=== PATIENT | female | born 1945 | race Caucasian/White ===

== ENCOUNTER → 2016-11-06 | Outpatient (CLI) | payer MEDICARE ==
--- NOTE | 2016-11-07 11:32 | BD ---
EXAMINATION TYPE: MG DEXA axial skeleton. DATE OF EXAM: 11/06/2016 COMPARISON: NONE CLINICAL HISTORY: Height: 59 IN Weight: 153 LBS FRAX RISK QUESTIONS: Alcohol (3 or more units per day): NO Family History (Parent hip fracture): NO Glucocorticoids (More than 3mos): NO (Ex: prednisone, prednisolone, methylprednisolone, dexamethasone, and hydrocortisone). History of Fracture in Adulthood: NO Secondary Osteoporosis: 1. Type 1 Diabetes: NO 2. Hyperthyroidism: NO 3. Menopause before 45: NO 4. Malnutrition: NO 5. Chronic liver disease: NO Rheumatoid Arthritis: NO Current Tobacco Use: NO RISK FACTORS HISTORY OF: Surgery to Hip(right): YES RT HIP REPLACEMENT When: 2014 Active: YES Diet low in dairy products/other sources of calcium: YES Postmenopausal woman: AGE 51 MEDICATIONS: Osteoporosis Medications: YES Which medication: Evista Additional Medications: EVISTA, CALCIUM, VIT D EXAM MEASUREMENTS: Bone mineral densitometry was performed using the Mov[employer] System. Bone mineral density as measured about the Lumbar spine is: ----- L1-L4(G/cm2): 1.152 T Score Values are as follows: ----- L2: -0.7 ----- L3: 0.9 ----- L4: 0.0 ----- L1-L4: -0.2 Bone mineral density has: Increased 2.5% since study of: 09/30/2014 PT HAD RT HIP REPLACEMENT 2014 Bone mineral density about the L hip (g/cm2): 0.711 T Score values are as follows: -----L Neck: -2.4 -----L Total: -0.9 Bone mineral density has: Decreased -3.4% since study of: 09/30/2014 IMPRESSION: Osteopenia (T Score between -2.5 and -1 as noted by T score values There is slightly increased risk of fracture and the patient may be considered for treatment. Re-Screen 2-5 years. Bone density is improved 2.5% within the lumbar spine from the comparison of 09/30/2014. Bone density within the left hip is diminished 3.4% from 2014. NOTE: T-SCORE=SD OF THE YOUNG ADULT MEAN.
--- NOTE | 2016-11-07 13:56 | MM ---
Reason for exam: screening (asymptomatic). Last mammogram was performed 1 year ago. History: Patient is postmenopausal and history of other cancer. Benign cyst aspiration, 1979. Physical Findings: A clinical breast exam by your physician is recommended on an annual basis and results should be correlated with mammographic findings. MG 3D Screening Mammo W/Cad Bilateral CC and MLO view(s) were taken. Prior study comparison: November 01, 2015, bilateral MG 3d screening mammo w/cad. There are scattered fibroglandular densities. No significant changes when compared with prior studies. ASSESSMENT: Benign, BI-RAD 2 RECOMMENDATION: Routine screening mammogram of both breasts in 1 year.
== END | disposition home or self-care (01) ==
LOC: RADMAMWWP 11:41
PROVIDERS: ATTEND Internal Medicine
DX: Z12.31 Encounter for screening mammogram for malignant neoplasm of breast (principal); M85.80 Other specified disorders of bone density and structure, unspecified site
CPT/HCPCS: 77080; 77063; G0202

== ENCOUNTER → 2017-12-16 | Outpatient (CLI) | payer MEDICARE ==
--- NOTE | 2017-12-18 11:59 | MM ---
Reason for exam: screening (asymptomatic). Last mammogram was performed 1 year and 1 month ago. History: Patient is postmenopausal and history of other cancer. Benign cyst aspiration, 1979. Physical Findings: A clinical breast exam by your physician is recommended on an annual basis and results should be correlated with mammographic findings. MG 3D Screening Mammo W/Cad Bilateral CC and MLO view(s) were taken. Prior study comparison: November 06, 2016, bilateral MG 3d screening mammo w/cad. November 01, 2015, bilateral MG 3d screening mammo w/cad. There are scattered fibroglandular densities. No significant changes when compared with prior studies. ASSESSMENT: Negative, BI-RAD 1 RECOMMENDATION: Routine screening mammogram of both breasts in 1 year.
== END | disposition home or self-care (01) ==
LOC: RADMAMWWP 08:48
PROVIDERS: ATTEND Internal Medicine
DX: Z12.31 Encounter for screening mammogram for malignant neoplasm of breast (principal)
CPT/HCPCS: 77063; 77067

== ENCOUNTER 2018-10-08 10:17 | Day surgery (SDC) | payer MEDICARE ==
[~2018-10-08 10:17] MED LIST: DEXAMETHASONE SOD PHOSPHATE 10 MG/ML 1 ML VIAL IV ONE; LACTATED RINGERS 1,000 ML IV SCH; LIDOCAINE 1% 20 ML VIAL (10MG/ML) FOR IV START INTRADERMA PRN; ceFAZolin IN SWFI 2 GM/20 ML SYRINGE IVP ONE
[2018-10-08] MEDS ORDERED: ONDANSETRON 4 MG/2 ML VIAL IVP ONE (11:07)
[2018-10-08] MEDS: MIDAZOLAM 2 MG/2 ML VIAL IV PRN ×2 (13:13→13:33)
[2018-10-08] MEDS: fentaNYL (PF) 50 MCG/ML 2 ML AMP IV PRN ×2 (13:14→13:31)
[2018-10-08] MEDS ORDERED: LIDOCAINE 1% INJ 10MG/ML (20 ML MDV) ONE (13:34)
[2018-10-08] MEDS ORDERED: PROPOFOL 10 MG/ML 20 ML VIAL IV ONE (13:34)
[2018-10-08] MEDS ORDERED: SUCCINYLCHOLINE CHLORIDE 100 MG/5 ML SYR IV ONE (13:34)
[2018-10-08] MEDS ORDERED: MIDAZOLAM 2 MG/2 ML VIAL ONE (13:34)
[2018-10-08] MEDS ORDERED: fentaNYL (PF) 50 MCG/ML 2 ML AMP ONE (13:34)
[2018-10-08] MEDS ORDERED: ROPIVACAINE 5 MG/ML 30 ML VIAL ONE (13:34)
--- NOTE | 2018-10-08 16:32 | P.OP ---
Date of Procedure: 10/08/18 Preoperative Diagnosis: 1. Hypermobile left hallux valgus 2. 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 Correction of left hallux valgus through the first tarsometatarsal joint corrective arthrodesis 2. Correction of left hallux valgus with a left modified Quinones procedure 3. Correction of deformity left second toe PIP arthrodesis 4. Application of short leg splint by physician Anesthesia: LELO, regional Surgeon: Anjel Shaffer Information Technology Program Manager #1: Beatris Shi Estimated Blood Loss (ml): 50 IV fluids (ml): 1,200 Pathology: none sent Condition: stable Disposition: PACU Indications for Procedure: The patient is a very pleasant 72-year-old table flexed any history of problems in her left foot. She previously had left second toe surgery by cellular equipment repairer developed angular deformity. She also has developed progressively worsening hallux valgus deformity. She has failed many years of nonsurgical treatment including activity modification, shoe modification, orthotics, anti- inflammatories, and observation. 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 Her x-rays showed a hallux valgus deformity with increased 1-2 intermetatarsal angle. There was minimal degenerative changes at the first MTP joint and she had no pain with passive range of motion of the MTP joint. I lengthy discussion with her on treatment options. The patient stated that since she had failed many years of nonsurgical treatment she wanted to go forward with surgery both of her hallux valgus and second toe. My recommendation was to correct the hallux valgus with a modified Lapidus procedure and correct the angular deformity of the second toe with an implant arthroplasty of the PIP joint. We discussed potential risks and complications of surgery including but not limited to risk of anesthesia, superficial infection, deep infection, delayed wound healing, superficial wound necrosis, deep wound necrosis, damage to local blood vessels or nerves, recurrent hallux valgus deformity, under correction of hallux valgus deformity, iatrogenic hallux varus deformity, nonunion of the fusion site, malunion the fusion site, failure of hardware, continued or worsened pain, dissatisfaction with surgery, recurrent deformity the second toe, need for an amputation, DVT, PE, other medical complications, and possibly loss of life or limb. The patient voiced understanding of all these potential complications and provided her verbal and written consent to go forward with surgery. Operative Findings: The patient had very poor bone quality and thin, delicate skin. Description of Procedure: The patient was identified prepped holding and the correct left leg was marked with my initials. I reviewed the consent form with the patient and her . All their questions were answered. A popliteal and saphenous nerve block was placed. The patient was then brought back to the operating room. She was positioned on the OR table where general anesthetic and preoperative antibiotics were given. A tourniquet was applied the proximal aspect of the left leg. All bony prominences were well-padded. The left leg was then prepped and draped in the standard sterile fashion. Prior to starting surgery timeout was performed identifying the correct patient, operative extremity, and procedure. The patient's leg was then elevated, exsanguinated with an Esmarch bandage, and the tourniquet was inflated to 250 mmHg. I began by outlining a longitudinal incision just medial to the EHL tendon centered over the first tarsometatarsal joint. Dissection was carried down carefully to the subcu tissues tissue taking care to not undermine the skin incision. Full-thickness flaps were developed under the EHL tendon. The EHL tendon sheath was incised and the tendon was retracted laterally. The capsule over the first tarsometatarsal joint was sharply elevated. On inspection of the base the first metatarsal there was bone loss medially. A saw blade was then used to plane the base of the first metatarsal for rotation. Attention was then turned to the first webspace. A 1 cm incision was made. Dissection was carried down carefully to the soft tissue with tenotomy scissors. The lateral capsule of the MTP joint were sharply released and elevated both proximally and distally off of the metatarsal and phalanx. A varus force was applied to the MTP joint and a palpable release was felt. A pin was then placed 1 cm distal to the tarsometatarsal joint and the first metatarsal base. Fluoroscopy was used to verify that the intermetatarsal angle to be reduced with rotation of the joystick pin and thumb pressure over the medial aspect of the first metatarsal head. I was easily able to reduce the intermetatarsal angle and cover the sesamoids. A cut guide was then placed over the first tarsometatarsal joint and a stab incision was made just distal to the cut guide over the lateral aspect second metatarsal. A stab incision was made at the lateral base of the first metatarsal and the fulcrum was placed. As I rotated the metatarsal an assistant to the vice president placed one kassie of the intermetatarsal reduction clamp over the second metatarsal and the other kassie over the medial shaft of the first metatarsal. The reduction clamp was tightened until 2 finger tightness was reached. Clinically the toe appeared straight. Fluoroscopy was used to assess the position of the metatarsal in both an AP and lateral plane. On the AP view the intermetatarsal angle was reduced and the sesamoids were covered. On the lateral view there is no elevation of the metatarsal. A K wire was driven to hold the reduction. The joint seeker was then placed in the first tarsometatarsal joint and a standard cut guide was placed over the keel of the joint seeker. The position of the cut guide was verified and pinned in place. The joint seeker was removed and I verified the bone was being evenly removed off of the base of the first metatarsal and medial cuneiform. A small reciprocating saw was used to remove the bone. The oblique pin through the cut guide was removed followed by the pin through the intermetatarsal reduction clamp. The compressor distractor device was placed over the pins and the medial cuneiform and first metatarsal. Gentle distraction was applied. The cut surfaces of bone were carefully removed and the joint was thoroughly inspected. There appeared to be a flat cut over the cuneiform but there is a small amount of articular cartilage remaining in the central portion of the first metatarsal base. A curet and osteotome was used to remove the remaining articular cartilage. The joint was thoroughly irrigated with sterile saline to remove all debris. A 2.0 mm drill bit was then used to fenestrate the cut surfaces of bone on the opposing surfaces of the medial cuneiform and metatarsal base. Fluoroscopy was used to verify that flat cuts of been achieved and there is no impediments to reduction. The compressor device was then gently tightened with the keel of the fulcrum at the lateral base of the first metatarsal. The joint was well compressed. Fluoroscopy was used to verify excellent apposition of the bony surfaces. The first metatarsal also appeared to cover the sesamoids and was rolled of the second metatarsal. An oblique K wire was then placed across the joint to hold the reduction. One plate from the set was placed over the medial aspect of the joint. The K wires from the compressor device were removed and the second plate was placed over the dorsolateral aspect of the joint. The oblique K wire across the joint was removed. Clinically the joint appeared to be compressed with no gapping. Fluoroscopy was then used which showed reduction of the intermetatarsal angle and coverage of the sesamoids on an AP view. There was no elevation of the first metatarsal and a lateral view. There is a small dorsomedial prominence over the MTP joint so a small incision was made over the medial eminence. Dissection was carried down through the subcu changes tissue. The capsule was incised longitudinally in line with the skin incision. A Ronguer was used to contour the medial aspect of the metatarsal head. A small amount of the capsule was removed and the capsule was then imbricated and closed with 0 Vicryl. Attention was then turned to the second toe. An incision was made through the scar over the dorsum of the toe. Dissection was carried down through the subcutaneous tissue. There was abundant scar tissue interposed at the joint. This was carefully removed sharply with the scalpel. The K wire was then driven through the middle phalanx out the tip of the toe. The toe was held reduced and the K wire was driven across the proximal phalanx. The K wire was then withdrawn from the PIP joint and the reamer was used to remove bone from the middle phalanx. A cannulated reamer was then used to create a path in the middle and proximal phalanx for the implant. The implant was then gently tapped into place and the middle phalanx. The quality of the bone at the proximal phalanx was very poor. I elected to not remove bone asymmetrically for fear of further damaging the proximal phalanx and not having bone for the implant to seat in. Clinically the PIP joint was reduced and the implant was gently tapped into place. Clinically the toe appeared straight but on x-ray there was slight valgus. Since clinically the toe appeared straight I elected to leave the implant and not take asymmetric bone from the phalanx. Final fluoroscopic images were taken in both wounds were thoroughly irrigated. The wounds were closed in layers with 2-0 Vicryl for the capsular layer, 3-0 Monocryl for the deep subcu, and 3-0 nylon for the skin. The tourniquet was let down. All instrument, sponge, and sharp counts were correct. A sterile dressing consisting of Betadine soaked Adaptic, 4 x 4, and web roll was applied. The toes appeared pink and well perfused. After the drapes were taken down and a well-padded bulky Carrero splint was placed with the ankle in neutral. The patient was then awoken from her anesthetic, transferred to a gurney, and brought to recovery entire procedure well. Beatris Shi PA-C was required as a skilled assistant to the vice president for patient positioning, surgical exposure, retraction, preparation of joint surfaces, and placement of hardware and splint. Plan: The patient can discharge home as an outpatient. She is to remain strictly nonweightbearing on her operative extremity anterior incisions heal. She'll be given aspirin for DVT prophylaxis. Due to her poor bone quality I'll check a vitamin D level.
[2018-10-08 16:43] VITALS: TEMP 97.3
--- NOTE | 2018-10-08 16:54 | FL ---
EXAMINATION TYPE: FL guidance operating room DATE OF EXAM: 10/08/2018 HISTORY: Flouroscopy time 36 seconds of fluoroscopy provided. IMPRESSION: 1. Fluoroscopy time.
--- NOTE | 2018-10-08 16:54 | XR ---
EXAMINATION TYPE: XR foot limited LT DATE OF EXAM: 10/08/2018 COMPARISON: NONE HISTORY: Postop TECHNIQUE: 2 intraoperative views are submitted. FINDINGS: Postsurgical changes appear in near-anatomic alignment. IMPRESSION: Postsurgical changes
[2018-10-08 17:16] VITALS: RESP 16
[2018-10-08 17:38] VITALS: BP 126/70; PULSE 86
== END 2018-10-08 18:16 | disposition home or self-care (01) ==
LOC: OR 10:17
PROVIDERS: ATTEND Orthopaedic Surgery
DX: M20.12 Hallux valgus (acquired), left foot (principal); M20.62 Acquired deformities of toe(s), unspecified, left foot; M21.42 Flat foot [pes planus] (acquired), left foot; M19.072 Primary osteoarthritis, left ankle and foot; M20.11 Hallux valgus (acquired), right foot; I10 Essential (primary) hypertension; I48.0 Paroxysmal atrial fibrillation; I45.2 Bifascicular block; Z98.890 Other specified postprocedural states; Z79.82 Long term (current) use of aspirin; Z79.899 Other long term (current) drug therapy; Z79.1 Long term (current) use of non-steroidal anti-inflammatories (NSAID); Z79.810 Long term (current) use of selective estrogen receptor modulators (SERMs); Z96.641 Presence of right artificial hip joint; Z91.048 Other nonmedicinal substance allergy status; Z87.891 Personal history of nicotine dependence
CPT/HCPCS: 28297; 28899; 93005; 73620; C1713; J2250; J1100; J2405; J2001; J3010; J2795; J0330; J2704; J0690; 64445; 64493

== ENCOUNTER → 2019-01-16 | Outpatient (CLI) | payer MEDICARE ==
--- NOTE | 2019-01-20 10:14 | MM ---
Reason for exam: screening (asymptomatic). Last mammogram was performed 1 year and 1 month ago. History: Patient is postmenopausal and history of other cancer. Benign cyst aspiration, 1979. Physical Findings: A clinical breast exam by your physician is recommended on an annual basis and results should be correlated with mammographic findings. MG 3D Screening Mammo W/Cad Bilateral CC and MLO view(s) were taken. Prior study comparison: December 16, 2017, bilateral MG 3d screening mammo w/cad. November 06, 2016, bilateral MG 3d screening mammo w/cad. The breast tissue is heterogeneously dense. This may lower the sensitivity of mammography. No suspicious abnormality. No significant changes when compared with prior studies. ASSESSMENT: Negative, BI-RAD 1 RECOMMENDATION: Routine screening mammogram of both breasts in 1 year.
== END | disposition home or self-care (01) ==
LOC: RADMAMWWP 09:07
PROVIDERS: ATTEND Internal Medicine
DX: Z12.31 Encounter for screening mammogram for malignant neoplasm of breast (principal)
CPT/HCPCS: 77063; 77067

== ENCOUNTER → 2019-01-20 | Outpatient (CLI) | payer MEDICARE ==
--- NOTE | 2019-01-20 10:40 | BD ---
EXAMINATION TYPE: Axial Bone Density DATE OF EXAM: 01/20/2019 COMPARISON: 11.06.2016 CLINICAL HISTORY: M [age] Height: 60.5 Weight: 144.7 FRAX RISK QUESTIONS: Alcohol (3 or more units per day): no Family History (Parent hip fracture): no Glucocorticoids (More than 3mos): no (Ex: prednisone, prednisolone, methylprednisolone, dexamethasone, and hydrocortisone). History of Fracture in Adulthood: no Secondary Osteoporosis: 1. Type 1 Diabetes: no 2. Hyperthyroidism: no 3. Menopause before 45: yes 4. Malnutrition: no 5. Chronic liver disease: no Rheumatoid Arthritis: no Current Tobacco Use: no RISK FACTORS HISTORY OF: Surgery to Spine/Hip(right/left)/Wrist (right/left): right hip When: 2014 Family History of Osteoporosis: no Active: yes Diet low in dairy products/other sources of calcium no Postmenopausal woman: early 38 Take estrogen and/or progesterone medications: yes How lon years Lost more than 2 inches in height since high school: yes MEDICATIONS: evista Additional History: EXAM MEASUREMENTS: Bone mineral densitometry was performed using the [employer] System. Bone mineral density as measured about the Lumbar spine is: ----- L1-L4(G/cm2): 1.160 T Score Values are as follows: ----- L2: -0.7 ----- L3: -0.1 ----- L4: 0.6 ----- L1-L4: -0.2 Bone mineral density has: decreased -1.1 % since study of: 11.06.2016 Bone mineral density about the L hip (g/cm2): 0.741 T Score values are as follows: -----L Neck: -2.1 -----L Total: -1.0 Bone mineral density has: decreased -1.8 % since study of: 11.06.2016 IMPRESSION: Osteopenia (T Score between -2.5 and -1). There is slightly increased risk of fracture and the patient may be considered for treatment. Re-Screen 2-5 years. NOTE: T-SCORE=SD OF THE YOUNG ADULT MEAN.
== END | disposition home or self-care (01) ==
LOC: RADBDWWP 09:07
PROVIDERS: ATTEND Internal Medicine
DX: M81.0 Age-related osteoporosis without current pathological fracture (principal); M85.80 Other specified disorders of bone density and structure, unspecified site
CPT/HCPCS: 77080

== ENCOUNTER → 2020-01-22 | Outpatient (CLI) | payer MEDICARE ==
--- NOTE | 2020-01-26 13:54 | MM ---
Reason for exam: screening (asymptomatic). Last mammogram was performed 1 year ago. History: Patient is postmenopausal and history of other cancer. Benign cyst aspiration, 1979. Physical Findings: A clinical breast exam by your physician is recommended on an annual basis and results should be correlated with mammographic findings. MG 3D Screening Mammo W/Cad Bilateral CC and MLO view(s) were taken. Prior study comparison: January 16, 2019, bilateral MG 3d screening mammo w/cad. December 16, 2017, bilateral MG 3d screening mammo w/cad. The breast tissue is heterogeneously dense. This may lower the sensitivity of mammography. There is chronic nodularity in the left breast. No significant changes when compared with prior studies. ASSESSMENT: Benign, BI-RAD 2 RECOMMENDATION: Routine screening mammogram of both breasts in 1 year.
== END | disposition home or self-care (01) ==
LOC: RADMAMWWP 10:46
PROVIDERS: ATTEND Internal Medicine
DX: Z12.31 Encounter for screening mammogram for malignant neoplasm of breast (principal)
CPT/HCPCS: 77063; 77067

== ENCOUNTER → 2020-02-05 | Outpatient (CLI) | payer MEDICARE ==
--- NOTE | 2020-02-05 15:37 | US ---
EXAMINATION TYPE: US kidneys/renal and bladder DATE OF EXAM: 02/05/2020 COMPARISON: US 08/16/2014 CLINICAL HISTORY: N28.1 RENAL CYST. EXAM MEASUREMENTS: Right Kidney: 9.9 x 4.7 x 4.7 cm Left Kidney: 9.8 x 4.7 x 4.2 cm Right Kidney: No hydronephrosis. Possible parapelvic cyst visualized measuring 0.8 cm Left Kidney: No hydronephrosis. Possible multiple parapelvic cysts visualized, largest measuring 1.3 cm Bladder: wnl Bilateral Jets seen: Yes IMPRESSION: 1. Peripelvic cysts
== END | disposition home or self-care (01) ==
LOC: RADUSWWP 13:33
PROVIDERS: ATTEND Internal Medicine
DX: N28.1 Cyst of kidney, acquired (principal)
CPT/HCPCS: 76770

== ENCOUNTER → 2021-01-25 | Outpatient (CLI) | payer MEDICARE ==
--- NOTE | 2021-01-26 12:40 | MM ---
Reason for exam: screening (asymptomatic). Last mammogram was performed 1 year ago. History: Patient is postmenopausal and history of other cancer. Benign cyst aspiration, 1979. Took hormonal contraceptives for 12 years. Physical Findings: A clinical breast exam by your physician is recommended on an annual basis and results should be correlated with mammographic findings. MG 3D Screening Mammo W/Cad Bilateral CC and MLO view(s) were taken. Prior study comparison: January 22, 2020, bilateral MG 3d screening mammo w/cad. January 16, 2019, bilateral MG 3d screening mammo w/cad. The breast tissue is heterogeneously dense. This may lower the sensitivity of mammography. There are benign appearing round calcifications bilaterally. There is no discrete abnormality. ASSESSMENT: Benign, BI-RAD 2 RECOMMENDATION: Routine screening mammogram of both breasts in 1 year.
== END | disposition home or self-care (01) ==
LOC: RADMAMWWP 08:41
PROVIDERS: ATTEND Internal Medicine
DX: Z12.31 Encounter for screening mammogram for malignant neoplasm of breast (principal); Z78.0 Asymptomatic menopausal state
CPT/HCPCS: 77063; 77067

== ENCOUNTER → 2021-01-25 | Outpatient (CLI) | payer MEDICARE ==
[2021-01-25 08:50] LABS: HCT 40.3 % (34.0-46.0); HGB 13.6 gm/dL (11.4-16.0); MCH 33.2 pg (25.0-35.0); MCHC 33.7 g/dL (31.0-37.0); MCV 98.3 fL (80.0-100.0); Mean Platelet Volume 7.1; Platelet Count 200 k/uL (150-450); RBC 4.11 m/uL (3.80-5.40); RDW 12.7 % (11.5-15.5); WBC 6.8 k/uL (3.8-10.6)
[2021-01-25 09:05] LABS: INR 0.9 (<1.2)
[2021-01-25 09:10] LABS: ALT 17 U/L (4-34); AST 25 U/L (14-36); African American GFR (CKD) >90 (>60 ml/min/1.73 sqM); Albumin 3.7 g/dL (3.5-5.0); Alkaline Phosphatase 61 U/L (38-126); Anion Gap 5 mmol/L; Blood Urea Nitrogen 16 mg/dL (7-17); Calcium 8.8 mg/dL (8.4-10.2); Carbon Dioxide 26 mmol/L (22-30); Chloride 107 mmol/L (98-107); Glucose 98 mg/dL (74-99); Non-African American GFR(CKD) 89 (>60 ml/min/1.73 sqM); Sodium 138 mmol/L (137-145); Total Bilirubin 0.4 mg/dL (0.2-1.3); Total Protein 6.5 g/dL (6.3-8.2)
[2021-01-25 10:07] LABS: Appearance,Urine Clear (Clear); Bilirubin,Urine Negative (Negative); Blood,Urine Negative (Negative); Color,Urine Light Yellow; Glucose,Urine (UA) Negative (Negative); Ketones,Urine Negative (Negative); Leukocyte Esterase,Urine Negative (Negative); Nitrite,Urine Negative (Negative); PH, Urine 7.5 (5.0-8.0); Protein,Urine Negative (Negative); Specific Gravity,Urine 1.014 (1.001-1.035); Urobilinogen,Urine <2.0 mg/dL (<2.0)
== END | disposition home or self-care (01) ==
LOC: LABPAT 07:55
PROVIDERS: ATTEND Orthopaedic Surgery
DX: Z01.812 Encounter for preprocedural laboratory examination (principal)
CPT/HCPCS: 36415; 80053; 81003; 85027; 85610; 85730; 87070

== ENCOUNTER 2021-02-09 07:38 | Day surgery (SDC) | payer MEDICARE ==
[2021-01-27 15:02] VITALS: BMI 32.8
[~2021-02-09 07:38] MED LIST changes: +ACETAMINOPHEN TAB 500 MG TAB PO PRN; -DEXAMETHASONE SOD PHOSPHATE 10 MG/ML 1 ML VIAL IV ONE; +GABAPENTIN 300 MG CAP PO PRN; -LACTATED RINGERS 1,000 ML IV SCH; -LIDOCAINE 1% 20 ML VIAL (10MG/ML) FOR IV START INTRADERMA PRN; +MELOXICAM 7.5 MG TAB PO PRN; +ROPIVACAINE/EPI/CLONIDINE/KET 50 ML SYRINGE MISCELLANE PRN; +TRANEXAMIC ACID 1,000 MG in SODIUM CHLORIDE 0.9% 100 ML IVPB PRN; +VANCOMYCIN 1,250 MG in SODIUM CHLORIDE 0.9% 250 ML IVPB ONE; -ceFAZolin IN SWFI 2 GM/20 ML SYRINGE IVP ONE
[2021-02-09] MEDS ORDERED: ONDANSETRON 4 MG/2 ML VIAL IVP ONE (08:01)
[2021-02-09] MEDS ORDERED: MIDAZOLAM 2 MG/2 ML VIAL IV PRN (08:01)
[2021-02-09] MEDS ORDERED: DEXAMETHASONE SOD PHOSPHATE 4 MG/ML 1 ML VIAL IV ONE (08:01)
[2021-02-09] MEDS ORDERED: HYDROmorphone 0.5 MG/0.5 ML SYRINGE IVP PRN ×2 (08:01→10:07)
[2021-02-09] MEDS: LACTATED RINGERS 1,000 ML IV SCH ×3 (08:40→23:41)
[2021-02-09] MEDS ORDERED: MIDAZOLAM 2 MG/2 ML VIAL IVP ONE (09:14)
[2021-02-09] MEDS ORDERED: SODIUM CHLORIDE 0.9% 100 ML BAG ONE (10:04)
[2021-02-09] MEDS ORDERED: MIDAZOLAM 2 MG/2 ML VIAL ONE (10:04)
[2021-02-09] MEDS ORDERED: TRANEXAMIC ACID 1,000 MG/10 ML VIAL ONE (10:04)
[2021-02-09] MEDS ORDERED: ROPIVACAINE 5 MG/ML 30 ML VIAL ONE (10:04)
[2021-02-09] MEDS ORDERED: fentaNYL (PF) 50 MCG/ML 2 ML AMP ONE (10:04)
[2021-02-09] MEDS ORDERED: DEXAMETHASONE SOD PHOSPHATE 4 MG/ML 1 ML VIAL ONE (10:04)
[2021-02-09] MEDS ORDERED: ACETAMINOPHEN TAB 325 MG TAB PO PRN (10:07)
[2021-02-09] MEDS ORDERED: MAGNESIUM HYDROXIDE 2,400 MG/10 ML CUP PO PRN (10:07)
[2021-02-09] MEDS ORDERED: HYDROmorphone 0.2 MG/1 ML SYRINGE IVP PRN (10:07)
[2021-02-09] MEDS ORDERED: HYDROcodone/APAP 5-325MG 1 EACH TAB PO PRN (10:07)
[2021-02-09] MEDS ORDERED: ONDANSETRON 4 MG/2 ML VIAL IVP PRN (10:07)
[2021-02-09] MEDS ORDERED: bisacodyL 10 MG SUPP RECTAL PRN (10:07)
[2021-02-09] MEDS ORDERED: NALOXONE 0.4 MG/ML 1 ML VIAL IV PRN (10:07)
[2021-02-09] MEDS ORDERED: traMADol 50 MG TAB PO PRN (10:07)
[2021-02-09] MEDS ORDERED: NA PHOS,M-B/NA PHOS,DI-BA 133 ML ENEMA RECTAL PRN (10:07)
[2021-02-09] MEDS ORDERED: ceFAZolin 3,000 MG in SODIUM CHLORIDE 0.9% IRRIGATIO 3,000 ML IRRIGATION ONE (10:34)
--- NOTE | 2021-02-09 12:36 | XR ---
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 There is soft tissue edema and emphysema. IMPRESSION: 1. Postoperative change. Appears in near-anatomic alignment
[2021-02-09] MEDS ORDERED: ROPIVACAINE 0.2%-NS ON-Q PUMP 2 MG/ML EACH MISCELLANE ONE (12:45)
[2021-02-09] MEDS ORDERED: FLUTICASONE 50MCG/SPRAY NASAL 16GM EA NOSTRIL PRN (17:46)
[2021-02-09] MEDS: APIXABAN 5 MG TAB PO SCH (18:14)
--- NOTE | 2021-02-09 19:08 | OP ---
OPERATIVE REPORT DATE OF PROCEDURE: 02/09/2021. SURGEON: Jeancarlos Velazco M.D. SHEET CUTTER: Pravin Castillo PA-C PREOPERATIVE DIAGNOSIS: Right knee osteoarthrosis. POSTOPERATIVE DIAGNOSIS: Right knee osteoarthrosis. OPERATION: Right total knee arthroplasty. ANESTHESIA: Spinal with sedation. ESTIMATED BLOOD LOSS: 100 mL. TOURNIQUET: Tourniquet time was 51 minutes at 250 mmHg. COMPLICATIONS: None apparent. DRAINS: None. DISPOSITION: Post-Anesthesia Care Unit INDICATIONS: Keyonna is a very pleasant 75-year-old female with a longstanding history of right knee pain. History and physical examination are consistent with advanced right knee osteoarthrosis. She has been through significant operative management up to this point. Further treatment options were discussed, and she has decided to go forward with right total knee arthroplasty. The risks of the procedure were discussed with her in detail. These risks include but are not limited to risk of infection, nerve damage, bleeding, pain, and a small risk of deep vein thrombosis which could lead to fatal pulmonary embolism. There is also a risk of loosening of the implant which could require revision operation. The patient understands these risks. All of her questions were answered to her satisfaction. Appropriate informed consent was obtained. DESCRIPTION OF PROCEDURE: The patient was identified in the preoperative holding area. Surgical site was marked by both the patient and myself. She was given 2 grams of Ancef IV for prophylactic purposes. She was then transferred to the operative suite. She was placed supine on the operating room table. A spinal anesthetic was then administered and dosed per the anesthesia department without apparent complication. Examination under anesthesia was then performed. The patient was 2-3 degrees shy of full extension. She had 100 degrees of flexion. The medial collateral ligament, lateral ligament, and posterior cruciate ligaments were stable. A tourniquet was then placed high on the right upper thigh, well padded in preparation for surgery. The patient's right lower extremity was then prepped and draped in the usual sterile fashion. Standard surgical pause was then undertaken to ensure that we were operating on the correct site and that appropriate preoperative antibiotics had been given. All staff in the room were in agreement and we proceeded. The outlines of the patella were marked with a surgical pen. A planned 12 cm vertical incision centered over the patella was marked with a surgical pen. Leg was then exsanguinated with an Esmarch dressing. The knee was then flexed and the tourniquet was inflated to 250 mmHg. Total tourniquet time for the procedure was 51 minutes. Incision was then made with a 10 blade scalpel. Dissection was carried down sharply to the overlying fascia. Great care was taken to minimize the skin flaps. The knee was then exposed using a standard medial parapatellar approach. A small cuff of quadriceps tendon was then left for suturing. She was in a small amount of valgus preoperatively. A very minimal medial release was then made. The superficial medial collateral ligament was dissected off the bone only to the point where I could place retractors medially. The medial meniscus was then excised as well. The lateral meniscus was also released anteriorly. The leg was then externally rotated. The patella was everted. The knee was flexed. Retractors then placed to protect the collateral ligaments. I then proceeded to remove the infrapatellar fat pad. This was excised sharply tangentially with the fibers of the patellar tendon. I then proceeded to remove the peripheral osteophytes. This was done with a rongeur. I then proceeded with the distal femoral resection. She did have near-full extension. A planned 9 mm resection was then done. The femoral canal was then entered in the midline of the femur approximately 10 mm anterior to the origin of the posterior cruciate ligament. The mely was then advanced down the center of the femur and placed intramedullary. Based on the preoperative radiographs, the angle between the anatomic and mechanical axis of the femur was approximately 4-5 degrees with a valgus angle. The distal femoral cutting guide was then set at 4 degrees for the right knee. The distal femoral cutting guide was then advanced over the intramedullary mely. This was seated firmly against the femur. I then, as mentioned, planned to take 9 mm off the distal femur. The cutting block was then secured onto the femur with pins. The jig was then removed and the distal femoral cut was made through the slot of the block. The pins were then removed and the distal femoral cutting block was removed. The accuracy of the distal femoral cuts was checked with 2 flat bars. I then proceeded with femoral sizing. The posterior referencing sizing guide was held firmly against the resected distal surface of the femur. The posterior condyles were resting on the posterior plane of the guide. The sizing stylus was then placed onto the anterior femur. The size was measured as a size 6. I then assessed for femoral rotation. Plan was for 3 degrees external rotation. Three degrees of external rotation was placed onto the jig. These holes were then marked. I then confirmed the rotation by 3 separate methods. This done using epicondylar axis as well as Whitesides line and posterior referencing. It was deemed that the external rotation was proper. I then went forward with placing the femoral cutting block. This was placed over the previously placed pin holes. The Edgar wing was then placed onto the anterior slots to ensure that we would not notch the anterior femur with the anterior femoral cut. I then proceeded with the anterior femoral cut. This was flush with the anterior cortex of the femur. The posterior cuts were then made followed by the anterior chamfer cut and then the posterior chamfer cut. The cutting block was then removed. Throughout the resection, the collateral ligaments were protected with retractors. I then placed a trial size 6 femur. It was slightly wide, but the narrow fit very nicely and it fit flush with the distal end of the femur. The drill holes were then made. I then proceeded with the tibial cut. I planned for a cruciate-retaining knee. The guide was placed and set for varus, valgus and for slope. The height was set for an approximate 2 mm resection from the lateral tibial plateau, which was the lower side. I was happy with the alignment and the amount of resection. The cutting block was then pinned to the proximal tibia. The alignment mely was removed. Proximal tibia was resected with a reciprocating saw. Again this was done with retractors protecting the collateral ligaments as well as the posterior cruciate ligament. I then proceeded to evaluate the flexion and extension gaps. A 10 mm block was then placed. The flexion and extension gaps were equal. I then proceeded with resection of the posterior osteophytes. She had very minimal posterior osteophytes. This was done using a curved osteotome. This resected the posterior osteophytes, and posterior capsule stripping was done off the posterior aspect of the femur at this time. The osteophytes were then removed. I then proceeded with resection of the patella. The thickness of patella was measured using the caliper. The thickness was 22 mm. Thickness of the anticipated patellar dome was taken into account. Resection was then performed and confirmed to be equal in 4 quadrants using a caliper. Approximately 14 mm of bone remained after resection. A 29 x 8 standard patellar trial was then placed. The holes were drilled. The trial was then placed. I then proceeded with sizing the tibial plate. A size C tibial plate fit very nicely. I then placed the trial femur, the tibial tray and the patellar button. A 10 mm trial tibial insert was also placed. The components fit very nicely. She had full extension and flexion. The extension and flexion gaps were equal and stable to both varus and valgus stress. The patella tracked appropriately. The tibial tray rotation was then marked with a Bovie. This was externally rotated properly. I then proceeded with tibial preparation. I first drilled the femoral holes and removed the femoral component. The tibial tray was then set for proper external rotation as well as mediolateral placement onto the tibia. It was then pinned into place. I then proceeded with punching the keel. I then decided to proceed with cementing of all of our components. The knee was thoroughly irrigated with sterile saline solution via pulse lavage. The lateral geniculate artery was identified and cauterized. All blood was removed from the bone of the tibia, femur and patella with pulse lavage. I then proceeded with cementing. Two packs of antibiotic bone cement were prepared on the back table by the hand frame surgical elastic knitter. I then proceeded with cementing the tibia first. Cement was impacted into the keel as well as deeply seated into the bone. A second coat of cement was then placed. The tibia was then impacted into place. Excess cement was removed with Chavo's and Joker's. I then proceeded with cementing of the femoral component. The femoral component was also cemented using standard technique. Excess cement was removed. A 10 mm trial insert was then placed into the knee. It was brought into full extension with a constant axial load placed until the cement had hardened. The patellar component was then cemented. This was held firmly with a compressive device until the cement had dried. When the cement had dried, the knee was taken out of extension. All excess cement was removed from around the prosthesis. I then trialed the knee with a 10 mm insert. Flexion and extension gaps were appropriate. The knee was stable. It came into full extension. I decided to go forward with a 10 mm cross-linked, cruciate-retaining tibial insert. Polyethylene was then placed onto the tibial tray and locked into place. The knee was then reduced. The knee was again further irrigated with sterile saline solution with antibiotic added. The tourniquet was then deflated. Total tourniquet time for the procedure was 51 minutes at 250 mmHg. Final components were Sara Persona size 6 narrow cruciate-retaining femoral component, a size C tibial tray, a 10 mm medial- congruent, cruciate-retaining polyethylene insert, and a 29 x 8 mm patella. I then proceeded with closure. Again the knee was thoroughly irrigated. The quadriceps tendon and the medial retinaculum were reapproximated with a #2 Ethibond suture. The extensor mechanism was then closed with a running #2 Quill suture. Subcutaneous tissues were closed with 2-0 Vicryl interrupted suture. The skin was closed with a running 3-0 Quill suture. Dermabond was applied to the incision. Sterile compressive dressings were applied. All sponge and needle counts were deemed correct prior to closure. The patient tolerated the procedure without apparent complication. She was transferred to the recovery room in stable condition. MMODL / IJN: [id number] /
[2021-02-09] MEDS ORDERED: VANCOMYCIN 1,000 MG in SODIUM CHLORIDE 0.9% 250 ML IVPB ONE (20:30)
[2021-02-09] MEDS: cycloSPORINE 0.05% OPHTH 0.4 ML DROPERETTE BOTH EYES SCH (20:30)
[2021-02-09] MEDS: LORATADINE 10 MG TAB PO SCH (20:31)
[2021-02-09] MEDS: SENNOSIDES-DOCUSATE SODIUM 1 EACH TAB PO SCH (20:31)
[2021-02-09] MEDS: HYDROcodone/APAP 10-325MG 1 EACH TAB PO PRN (20:31)
[2021-02-09] MEDS ORDERED: APIXABAN 5 MG TAB PO SCH (21:00)
[2021-02-10] MEDS: HYDROmorphone 0.5 MG/0.5 ML SYRINGE IVP PRN ×2 (00:42→16:58)
[2021-02-10] MEDS: HYDROcodone/APAP 10-325MG 1 EACH TAB PO PRN ×4 (06:17→23:26)
--- NOTE | 2021-02-10 08:45 | P.CONS ---
History of Present Illness - Reason for Consult Consult date: 02/10/21 Medical management Requesting physician: Jeancarlos Velazco - History of Present Illness HISTORY OF PRESENT ILLNESS This is a 75-year-old female patient of Dr. rodriguez'vladimir with past medical history of paroxysmal atrial fibrillation, typical atrial flutter and SVT status post ablation, osteopenia, seasonal ALLERGIES, generalized osteoarthritis. Patient has been brought into hospital care of Dr. Velazco status post right total knee arthroplasty.patient is had no postop complications. Pain to the right knee is fairly well controlled. She has incentive spirometry encouraged to use every hour. Anticipate possible discharge home today. Medication reconciliation has been reviewed. REVIEW OF SYSTEMS Constitutional: No fever, no chills, no night sweats. No weight change. No weakness, fatigue or lethargy. No daytime sleepiness. EENT: No headache. No blurred vision or double vision, no loss of vision. No loss of Hearing, no ringing in the ears, no dizziness. No nasal drainage or congestion. No epistaxis. No sore throat. Lungs: No shortness of breath, cough, no sputum production. No wheezing. Cardiovascular: No chest pain, no lower extremity edema. No palpitations. No paroxysmal nocturnal dyspnea. No orthopnea. No lightheadedness or dizziness. No syncopal episodes. Abdominal: No abdominal pain. No nausea, vomiting. No diarrhea. No constipation. No bloody or tarry stools.. No loss of appetite. Genitourinary: No dysuria, increased frequency, urgency. No urinary retention. Musculoskeletal: No myalgias. No muscle weakness, no gait dysfunction, no frequent falls. No back pain. No neck pain. Integumentary: No wounds, no lesions. No rash or pruritus. No unusual bruising. No change in hair or nails. Neurologic: No aphasia. No facial droop. No change in mentation. No head injury. No headache. No paralysis. No paresthesia. Psychiatric: No depression. No anxiety. No mood swings. Endocrine: No abnormal blood sugars. No weight change. No excessive sweating or thirst. No cold intolerance. SOCIAL HISTORY Patient was a smoker on and off since 1961 and quit smoking in 1983. She drinks alcohol occasionally. No marijuana or drug use. She lives at home with her . FAMILY HISTORY [ ]. PHYSICAL EXAMINATION Gen: This is a 75-year-old female. Patient is resting in chair and appears to be comfortable and in no acute distress. HEENT: Head is atraumatic, normocephalic. Pupils equal, round. Sclerae is anicteric. NECK: Supple. No JVD. No lymphadenopathy. No thyromegaly. LUNGS: Clear to auscultation. No wheezes or rhonchi. No intercostal retractions. HEART: First heart sound is depressed, second heart sound is normal, no S3 or S4, no JVP. No murmur. ABDOMEN: Soft. Bowel sounds are present. No masses. No tenderness. EXTREMITIES: No pedal edema. No calf tenderness. NEUROLOGICAL: Patient is awake, alert and oriented x3. Cranial nerves 2 through 12 are grossly intact. ASSESSMENT AND PLAN 1. Right knee osteoarthritis status post right total knee arthroplasty. Continue current pain management per orthopedics, physical therapy, incentive spirometry to reduce incidence of atelectasis and hospital-acquired pneumonia. 2. Paroxysmal atrial fibrillation. Patient has already been resumed on eliquis. 3. Hyperlipidemia. Continue atorvastatin 10 mg daily. 4. Seasonal ALLERGIES. Continue Flonase twice daily, Claritin daily at bedtime. 5. DVT prophylaxis. Patient is on eliquis. 6. COVID-19 testing negative. DISCHARGE PLAN Home. Impression and plan of care have been directed as dictated by the signing physician. Damaris Mario nurse practitioner acting as scribe for signing physician. Past Medical History Past Medical History: Atrial Flutter, Cancer, Eye Disorder, Osteoarthritis (OA), Supraventricular Tachycardia (SVT) Additional Past Medical History / Comment(s): BASAL CELL SKIN CANCER.,SEASONAL ALLERGIES, BULDGING DISC WITH CHRONIC BACK PAIN., DOUBLE VISION. History of Any Multi-Drug Resistant Organisms: None Reported Past Surgical History: Cardiac Ablation, Joint Replacement, Orthopedic Surgery Additional Past Surgical History / Comment(s): RT BREAST BX ., CARDIAC ABLATION X 2. CASTRO WRIST SURGERY FOR DEQUERVIAN TENDONITIS., PAIN INJECTIONS FOR BACK ., TOTAL RIGHT HIP, CASTRO CATARACT WITH IMPLANTS., LEFT BUNIONECTOMY. total right knee. Past Anesthesia/Blood Transfusion Reactions: No Reported Reaction, Motion Sickness Past Psychological History: No Psychological Hx Reported Smoking Status: Former smoker Past Alcohol Use History: Occasional Additional Past Alcohol Use History / Comment(s): QUIT SMOKING 1983, SMOKED ON AND OFF SINCE 1961 Past Drug Use History: None Reported - Past Family History Father Family Medical History: CVA/TIA Mother Family Medical History: Myocardial Infarction (ME) Additional Family Medical History / Comment(s): ERMA. AT AGE 67 Medications and Allergies Home Medications Medication Instructions Recorded Confirmed Type Fluticasone Propionate [Flonase] 1 spray EA NOSTRIL BID PRN 10/20/13 02/09/21 History Raloxifene [Evista] 60 mg PO HS 10/12/14 02/09/21 History Aspirin 81 mg PO DAILY 01/11/15 02/09/21 History cycloSPORINE 0.05% OPHTH SOLN 1 drop BOTH EYES BID 10/03/18 02/09/21 History [Restasis] Acetaminophen Tab [Tylenol Tab] 500 mg PO Q6H PRN 01/27/21 02/09/21 History Apixaban [Eliquis] 5 mg PO BID 01/27/21 02/09/21 History Calcium 500 With Vit D 400 1 tab PO DAILY 01/27/21 02/09/21 History Cetirizine HCl [Zyrtec] 10 mg PO HS 01/27/21 02/09/21 History Magnesium 250 mg PO W/SUPPER 01/27/21 02/09/21 History Multivit-Min/FA/Lycopen/Lutein 1 each PO DAILY 01/27/21 02/09/21 History [Centrum Silver Tablet] Rosuvastatin Calcium 5 mg PO DAILY 01/27/21 02/09/21 History Allergies Allergy/AdvReac Type Severity Reaction Status Date / Time No Known Allergies Allergy Verified 02/09/21 08:12 Physical Exam Vitals: Vital Signs Temp Pulse Resp BP Pulse Ox 02/10/21 07:54 98.4 F 70 18 138/60 98 02/10/21 02:00 97.7 F 73 16 98/56 94 L 02/09/21 19:46 84 17 02/09/21 19:26 98.0 F 84 17 153/77 97 02/09/21 16:00 68 16 02/09/21 15:53 68 133/69 96 02/09/21 15:38 66 135/73 97 02/09/21 15:24 86 137/73 97 02/09/21 14:53 74 127/76 95 02/09/21 14:38 74 115/80 95 02/09/21 14:23 79 150/73 96 02/09/21 14:18 82 125/73 02/09/21 14:10 82 219/54 95 02/09/21 14:00 97.7 F 81 16 116/66 95 02/09/21 13:20 65 16 107/53 98 02/09/21 13:01 62 16 107/53 98 02/09/21 12:46 59 L 16 112/60 98 02/09/21 12:31 58 L 16 139/82 97 02/09/21 12:16 61 16 141/62 96 02/09/21 12:01 97.1 F L 71 16 99/71 96 02/09/21 09:35 61 20 153/71 100 Intake and Output 02/09/21 02/10/21 02/10/21 22:59 06:59 14:59 Output Total 300 Balance -300 Output: Urine 300 Other: # Voids 1 3
[2021-02-10] MEDS: CALCIUM CARB-VIT D 500 MG-5 MCG TAB PO SCH (08:59)
[2021-02-10] MEDS: ATORVASTATIN 10 MG TAB PO SCH (08:59)
[2021-02-10] MEDS: ASPIRIN 81 MG PO SCH (08:59)
[2021-02-10] MEDS: cycloSPORINE 0.05% OPHTH 0.4 ML DROPERETTE BOTH EYES SCH ×2 (09:00→21:08)
[2021-02-10] MEDS: MULTIVITAMINS, THERA 1 EACH TAB PO SCH ×2 (09:00→12:54)
[2021-02-10] MEDS: APIXABAN 5 MG TAB PO SCH ×2 (09:01→21:07)
[2021-02-10] MEDS: LACTATED RINGERS 1,000 ML IV SCH ×3 (09:01→12:56)
[2021-02-10 09:08] LABS: Basophils # (A) 0.01 X 10*3/uL (0.00-0.10); Basophils % (A) 0.1 %; Eosinophils # (A) 0.02 X 10*3/uL (0.04-0.35); Eosinophils % (A) 0.2 %; HCT 33.7 % (37.2-46.3); HGB 10.8 g/dL (12.0-15.0); Lymphocytes % (A) 18.8 %; MCH 31.2 pg (27.0-32.0); MCV 97.4 fL (80.0-97.0); Mean Platelet Volume 9.7 fL (9.5-12.2); Monocytes # (A) 0.85 X 10*3/uL (0.20-1.00); Monocytes % (A) 6.9 %; Neutrophils # (A) 9.05 X 10*3/uL (1.80-7.70); Neutrophils % (A) 73.8 %; Platelet Count 195 X 10*3/uL (140-440); RBC 3.46 X 10*6/uL (4.10-5.20); RDW 13.1 % (11.5-14.5); WBC 12.26 X 10*3/uL (4.50-10.00)
--- NOTE | 2021-02-10 11:29 | P.CONS ---
History of Present Illness - Reason for Consult Consult date: 02/09/21 Medical management Requesting physician: Jeancarlos Vealzco - Chief Complaint Status post right total knee arthroplasty - History of Present Illness HISTORY OF PRESENT ILLNESS: This is a 75-year-old female one of my patient with a previous medical history significant for hyperlipidemia, history of paroxysmal atrial flutter ablation, supraventricular tachycardia status post ablation, history of spondylosis of the lumbar spine, osteoarthritis underwent right total knee arthroplasty that was done successfully by Dr. Velazco and we were asked to see the patient for medical management patient is laying down in bed in no apparent distress, she denies any chest pain or shortness breath, she does have the On-Q pump in place, she does complain of some swelling in the right lower extremity without any pain in the calf area, she has no nausea or vomiting she seems to be tolerating her treatment very well. REVIEW OF SYSTEMS: Constitutional: No documented fever, no chills, no night sweats. No weight change. No weakness, fatigue or lethargy. No daytime sleepiness. HEENT: No headache. No blurred vision or double vision, no loss of vision. No loss of Hearing, no ringing in the ears, no dizziness. No nasal drainage or congestion. No epistaxis. No sore throat. Lungs: No shortness of breath, no cough, no sputum production. No wheezing. Reports dyspnea with activity. Cardiovascular: No chest pain, no lower extremity edema. No palpitations. No paroxysmal nocturnal dyspnea. No orthopnea. No lightheadedness or dizziness. No syncopal episodes. Abdominal: Reports no abdominal pain. No nausea, vomiting. No diarrhea. No constipation. No bloody or tarry stools reports loss of appetite. Genitourinary: No dysuria, increased frequency, urgency. No urinary retention. Musculoskeletal: No myalgias. No muscle weakness, no gait dysfunction, no freq uent falls Integumentary: No wounds, no lesions. No rash or pruritus. No unusual bruising. No change in hair or nails. Neurologic: No aphasia. No facial droop. No change in mentation. No head injury. No headache. No paralysis. No paresthesia. Psychiatric: No depression. No anxiety. No mood swings. Endocrine: No abnormal blood sugars. No weight change. PAST MEDICAL HISTORY: Hyperlipidemia Paroxysmal atrial fibrillation. Supraventricular tachycardia status post ablation. ALLERGIC rhinitis. Spondylosis of the lumbar spine Osteoarthritis Osteopenia. GERD. PAST SURGICAL HISTORY: Tonsillectomy D&C. SVT ablation in 2004 Adenoidectomy 2005 Colonoscopy 2005, 2009 in 2013 Right total hip arthroplasty 11/02/2014 EP study 2013 SOCIAL HISTORY: Patient is a lifelong nonsmoker she denies any drug use or abuse, she drinks occasionally lives with her . FAMILY HISTORY: Father at age of 86 from CVA and hypertension, mother at age of 67 from congestive heart failure, patient had 4 brothers one from alcohol is him and one from CAD COPD and the other 2 are living with no health issues patient has one sister with lymphoma and 2 sons who are okay and one daughter who does not have any major medical problems. PHYSICAL EXAMINATION: General: 75-year-old female laying down in bed in no apparent distress HEENT: Head is atraumatic, normocephalic, pupils were equal round reactive to light and recommendation, extraocular muscle movement were intact, sclera nonicteric, conjunctivae were pale, mucous membranes of the mouth are somewhat dry. Neck: Supple, no JVP, normal carotid upstroke bilaterally, no lymphadenopathy. Chest: Decreased breath sounds at the bases, few rhonchi, no expiratory wheezes, no chest wall tenderness, no intercostal retractions. Heart: First heart sound is normal, second heart sounds normal, there is no gallop or murmur. Abdomen: Soft, nontender, nondistended, positive bowel sounds. Extremities: There is no edema no calf tenderness DP +2 bilaterally, right lower extremity is wrapped with an Sky wrap, there is an On-Q pump in place. Neurologic examination: Patient is awake alert and oriented X3, cranial nerves I I-12 appear grossly intact, muscle power were 5 out of 5 in upper extremities and 5 out of 5 in bilateral lower extremities, deep tendon reflexes normal bilaterally. ASSESSMENT AND PLAN: 1. Post operative day #0 status post right total knee arthroplasty. Patient was instructed to use the incentive spirometer to reduce the incidence of atelectasis and hospital acquired pneumonia, continue current pain management as outlined by orthopedic surgery, patient did have spinal anesthesia we'll hold off Eliquis for 24 hours and that would be started tomorrow night, continue with physical therapy evaluation, continue with monitoring the patient over the next 24 hours. 2. Paroxysmal atrial for relation currently in sinus rhythm. Continue patient off Eliquis for another 24 hours then resume 5 mg orally twice every day. 3. Mixed hyperlipidemia. Continue Crestor 5 mg orally once every day. 4. ALLERGIC rhinitis. Continue patient on fluticasone nasal spray 1 puff in each nostril twice every day, Zyrtec 10 mg orally once every day. 5. History of osteopenia. Hold patient Evista for now. 6. Supraventricular tachycardia status post ablation. Stable. 7. GERD. Continue patient on Pepcid or Protonix 40 mg once every day. 8. Acute blood loss anemia monitor the patient's CBC over the next 24 hours. 9. DVT prophylaxis. Continue with Eliquis 5 mg orally twice every day to start tomorrow night. 10. GI prophylaxis. Continue patient on Protonix 40 mg once every day. 11. Thank you Dr. Velazco for allowing me to participate in the care of your patient we will follow the patient along with you. Past Medical History Past Medical History: Atrial Flutter, Cancer, Eye Disorder, Osteoarthritis (OA), Supraventricular Tachycardia (SVT) Additional Past Medical History / Comment(s): BASAL CELL SKIN CANCER.,SEASONAL ALLERGIES, BULDGING DISC WITH CHRONIC BACK PAIN., DOUBLE VISION. History of Any Multi-Drug Resistant Organisms: None Reported Past Surgical History: Cardiac Ablation, Joint Replacement, Orthopedic Surgery Additional Past Surgical History / Comment(s): RT BREAST BX ., CARDIAC ABLATION X 2. CASTRO WRIST SURGERY FOR DEQUERVIAN TENDONITIS., PAIN INJECTIONS FOR BACK ., TOTAL RIGHT HIP, CASTRO CATARACT WITH IMPLANTS., LEFT BUNIONECTOMY. total right knee. Past Anesthesia/Blood Transfusion Reactions: No Reported Reaction, Motion Sickness Past Psychological History: No Psychological Hx Reported Smoking Status: Former smoker Past Alcohol Use History: Occasional Additional Past Alcohol Use History / Comment(s): QUIT SMOKING 1983, SMOKED ON AND OFF SINCE 1961 Past Drug Use History: None Reported - Past Family History Father Family Medical History: CVA/TIA Mother Family Medical History: Myocardial Infarction (ND) Additional Family Medical History / Comment(s): POLIO. AT AGE 67 Medications and Allergies Home Medications Medication Instructions Recorded Confirmed Type Fluticasone Propionate [Flonase] 1 spray EA NOSTRIL BID PRN 10/20/02/09/21 History Raloxifene [Evista] 60 mg PO HS 10/12/14 02/09/21 History Aspirin 81 mg PO DAILY 01/11/15 02/09/21 History cycloSPORINE 0.05% OPHTH SOLN 1 drop BOTH EYES BID 10/03/18 02/09/21 History [Restasis] Acetaminophen Tab [Tylenol] 500 mg PO Q6H PRN 01/27/21 02/09/21 History Apixaban [Eliquis] 5 mg PO BID 01/27/21 02/09/21 History Calcium 500 With Vit D 400 1 tab PO DAILY 01/27/21 02/09/21 History Cetirizine HCl [Zyrtec] 10 mg PO HS 01/27/21 02/09/21 History Magnesium 250 mg PO W/SUPPER 01/27/21 02/09/21 History Multivit-Min/FA/Lycopen/Lutein 1 each PO DAILY 01/27/21 02/09/21 History [Centrum Silver Tablet] Rosuvastatin Calcium 5 mg PO DAILY 01/27/21 02/09/21 History Sennosides-Docusate Sodium 2 each PO HS tab 02/10/21 Rx [Senokot-S] Allergies Allergy/AdvReac Type Severity Reaction Status Date / Time No Known Allergies Allergy Verified 02/09/21 08:12 Physical Exam Vitals: Vital Signs Temp Pulse Resp BP Pulse Ox 02/09/21 16:00 68 16 02/09/21 15:53 68 133/69 96 02/09/21 15:38 66 135/73 97 02/09/21 15:24 86 137/73 97 02/09/21 14:53 74 127/76 95 02/09/21 14:38 74 115/80 95 02/09/21 14:23 79 150/73 96 02/09/21 14:18 82 125/73 02/09/21 14:10 82 219/54 95 02/09/21 14:00 97.7 F 81 16 116/66 95 02/09/21 13:20 65 16 107/53 98 02/09/21 13:01 62 16 107/53 98 02/09/21 12:46 59 L 16 112/60 98 02/09/21 12:31 58 L 16 139/82 97 02/09/21 12:16 61 16 141/62 96 02/09/21 12:01 97.1 F L 71 16 99/71 96 02/09/21 09:35 61 20 153/71 100 02/09/21 08:20 97.3 F L 84 20 168/78 96 Intake and Output 02/09/21 02/09/21 02/09/21 06:59 14:59 22:59 Intake Total 1551 Output Total 100 300 Balance 1451 -300 Intake: IV 1551 Output: Urine 300 Estimated Blood Loss 100 Other: Weight 67.1 kg Results CBC & Chem 7: 02/10/21 06:29
--- NOTE | 2021-02-10 11:51 | P.ANPRN ---
Procedure Note - Anesthesia - Nerve Block Performed Right Adductor Canal Infusion Time Out Performed: Yes Date of Procedure: 02/10/21 Procedure Start Time: :12 Procedure Stop Time: Location of Patient: PreOp Indication: Acute Post-Operative Pain, Requested by Surgeon Sedation Type: Sedate with meaningful contact maintained Preparation: Sterile Prep, Sterile Dressing Position: Supine Catheter: Indwelling Needle Types: Pajunk Needle Gauge: 18, 21 Ultrasound used to visualize needle placement: Yes Ultrasound used to observe medication spread: Yes Blood Aspirated: No Pain Paresthesia on Injection Noted: No Resistance on Injection: Normal Image Stored and Saved: Yes Events: Uneventful and Well Tolerated (Ropivacaine 0.5% 20 mL)
--- NOTE | 2021-02-10 11:53 | P.ANPRN ---
Procedure Note - Anesthesia - Nerve Block Performed Right [place] Single Time Out Performed: Yes Date of Procedure: 02/10/21 Procedure Start Time: Procedure Stop Time: : Location of Patient: PreOp Indication: Acute Post-Operative Pain, Requested by Surgeon Sedation Type: Sedate with meaningful contact maintained Preparation: Sterile Prep Position: Supine Needle Types: Pajunk Needle Gauge: 21 Ultrasound used to visualize needle placement: Yes Ultrasound used to observe medication spread: Yes Blood Aspirated: No Pain Paresthesia on Injection Noted: No Resistance on Injection: Normal Image Stored and Saved: Yes Events: Uneventful and Well Tolerated (Ropivacaine 0.5% 20 mL of dexamethasone 4 mg)
--- NOTE | 2021-02-10 12:58 | P.PN ---
Progress Note - Text 02/10/21 656am 75-year-old female status post total knee replacement by Dr. Velazco. Patient has an On-Q pump for postop pain control with the solution running at 8 mL an hour with a VAS of 2 at rest, increases to 4 AM on ambulation. Dressing looks clean dry and intact. Plan to continue On-Q pump infusion
--- NOTE | 2021-02-10 14:20 | P.PN ---
Subjective Progress Note Date: 02/10/21 HISTORY OF PRESENT ILLNESS: This is a 75-year-old female one of my patient with a previous medical history significant for hyperlipidemia, history of paroxysmal atrial flutter ablation, supraventricular tachycardia status post ablation, history of spondylosis of the lumbar spine, osteoarthritis underwent right total knee arthroplasty that was done successfully by Dr. Velazco and we were asked to see the patient for medical management patient is laying down in bed in no apparent distress, she denies any chest pain or shortness breath, she does have the On-Q pump in place, she does complain of some swelling in the right lower extremity without any pain in the calf area, she has no nausea or vomiting she seems to be tolerating her treatment very well. 02/10: Pain to the right knee is fairly well controlled. She has incentive spirometry encouraged to use every hour. Anticipate possible discharge home today. Medication reconciliation has been reviewed. REVIEW OF SYSTEMS: Constitutional: No documented fever, no chills, no night sweats. No weight change. No weakness, fatigue or lethargy. No daytime sleepiness. HEENT: No headache. No blurred vision or double vision, no loss of vision. No loss of Hearing, no ringing in the ears, no dizziness. No nasal drainage or congestion. No epistaxis. No sore throat. Lungs: No shortness of breath, no cough, no sputum production. No wheezing. Reports dyspnea with activity. Cardiovascular: No chest pain, no lower extremity edema. No palpitations. No paroxysmal nocturnal dyspnea. No orthopnea. No lightheadedness or dizziness. No syncopal episodes. Abdominal: Reports no abdominal pain. No nausea, vomiting. No diarrhea. No constipation. No bloody or tarry stools reports loss of appetite. Genitourinary: No dysuria, increased frequency, urgency. No urinary retention. Musculoskeletal: No myalgias. No muscle weakness, no gait dysfunction, no frequent falls Integumentary: No wounds, no lesions. No rash or pruritus. No unusual bruising. No change in hair or nails. Neurologic: No aphasia. No facial droop. No change in mentation. No head injury. No headache. No paralysis. No paresthesia. Psychiatric: No depression. No anxiety. No mood swings. Endocrine: No abnormal blood sugars. No weight change. PHYSICAL EXAMINATION: General: 75-year-old female laying down in bed in no apparent distress HEENT: Head is atraumatic, normocephalic, pupils were equal round reactive to light and recommendation, extraocular muscle movement were intact, sclera nonicteric, conjunctivae were pale, mucous membranes of the mouth are somewhat dry. Neck: Supple, no JVP, normal carotid upstroke bilaterally, no lymphadenopathy. Chest: Decreased breath sounds at the bases, few rhonchi, no expiratory wheezes, no chest wall tenderness, no intercostal retractions. Heart: First heart sound is normal, second heart sounds normal, there is no gallop or murmur. Abdomen: Soft, nontender, nondistended, positive bowel sounds. Extremities: There is no edema no calf tenderness DP +2 bilaterally, right lower extremity is wrapped with an Sky wrap, there is an On-Q pump in place. Neurologic examination: Patient is awake alert and oriented X3, cranial nerves II-12 appear grossly intact, muscle power were 5 out of 5 in upper extremities and 5 out of 5 in bilateral lower extremities, deep tendon reflexes normal bilaterally. ASSESSMENT AND PLAN: 1. Post operative day #1 status post right total knee arthroplasty. Patient was instructed to use the incentive spirometer to reduce the incidence of atelectasis and hospital acquired pneumonia, continue current pain management as outlined by orthopedic surgery, resume Eliquis, continue with physical therapy evaluation. 2. Paroxysmal atrial fibrillation currently in sinus rhythm. Continue Eliquis 5 mg orally twice every day. 3. Mixed hyperlipidemia. Continue Crestor 5 mg orally once every day. 4. ALLERGIC rhinitis. Continue patient on fluticasone nasal spray 1 puff in each nostril twice every day, Zyrtec 10 mg orally once every day. 5. History of osteopenia. Hold patient Evista for now. 6. Supraventricular tachycardia status post ablation. Stable. 7. GERD. Continue patient on Pepcid or Protonix 40 mg once every day. 8. Acute blood loss anemia monitor the patient's CBC over the next 24 hours. 9. DVT prophylaxis. Continue with Eliquis 5 mg orally twice every day to start tomorrow night. 10. GI prophylaxis. Continue patient on Protonix 40 mg once every day. 11. Thank you Dr. Velazco for allowing me to participate in the care of your patient we will follow the patient along with you. DISCHARGE PLAN: Home with [facility] Impression and plan of care have been directed as dictated by the signing physician. Damaris Mario nurse practitioner acting as scribe for signing physician. Objective - Vital Signs Vital signs: Vital Signs Temp 98.4 F 02/10/21 07:54 Pulse 70 02/10/21 08:10 Resp 18 02/10/21 08:10 BP 138/60 02/10/21 07:54 Pulse Ox 98 02/10/21 07:54 Intake & Output 02/09/21 02/10/21 02/10/21 18:59 06:59 18:59 Intake Total 1551 Output Total 400 Balance 1151 Weight 67.1 kg Intake: IV 1551 Output: Urine 300 Estimated Blood Loss 100 Other: # Voids 1 3 - Labs CBC & Chem 7: 02/10/21 06:29 Labs: Abnormal Lab Results - Last 24 Hours (Table) 02/10/21 Range/Units 06:29 WBC 12.26 H (4.50-10.00) X 10*3/uL RBC 3.46 L (4.10-5.20) X 10*6/uL Hgb 10.8 L (12.0-15.0) g/dL Hct 33.7 L (37.2-46.3) % MCV 97.4 H (80.0-97.0) fL Neutrophils # 9.05 H (1.80-7.70) X 10*3/uL Eosinophils # 0.02 L (0.04-0.35) X 10*3/uL
[2021-02-10 14:49] VITALS: RESP 16
[2021-02-10] MEDS ORDERED: MAGNESIUM OXIDE 400 MG TAB PO SCH (17:30)
[2021-02-10] MEDS: LORATADINE 10 MG TAB PO SCH (21:08)
[2021-02-10] MEDS: SENNOSIDES-DOCUSATE SODIUM 1 EACH TAB PO SCH (21:08)
--- NOTE | 2021-02-10 22:00 | P.PN ---
Subjective Progress Note Date: 02/10/21 Principal diagnosis: right TKA Patient is seen at bedside this morning. She is postop day #1 from right total knee arthroplasty. She has pain at the surgical site as expected but denies any new complaints. He denies numbness, tingling or calf pain. Review of systems is negative for fever, chills, chest pain, shortness of breath or other Objective - Vital Signs Vital signs: Vital Signs Temp 98.4 F 02/10/21 07:54 Pulse 70 02/10/21 07:54 Resp 18 02/10/21 07:54 BP 138/60 02/10/21 07:54 Pulse Ox 98 02/10/21 07:54 Intake & Output 02/09/21 02/10/21 02/10/21 18:59 06:59 18:59 Intake Total 1551 Output Total 400 Balance 1151 Weight 67.1 kg Intake: IV 1551 Output: Urine 300 Estimated Blood Loss 100 Other: # Voids 1 3 - Exam Inspection reveals a benign surgical wound. There is no active bleeding or drainage. Neurovascular status is intact throughout the lower extremity with motor and sensation fully intact. Calf is soft and nontender. 2+ dorsalis pedis pulse and less than 2 second cap refill is present. - Constitutional General appearance: Present: no acute distress - Labs CBC & Chem 7: 02/10/21 06:29 Labs: Abnormal Lab Results - Last 24 Hours (Table) 02/10/21 Range/Units 06:29 WBC 12.26 H (4.50-10.00) X 10*3/uL RBC 3.46 L (4.10-5.20) X 10*6/uL Hgb 10.8 L (12.0-15.0) g/dL Hct 33.7 L (37.2-46.3) % MCV 97.4 H (80.0-97.0) fL Neutrophils # 9.05 H (1.80-7.70) X 10*3/uL Eosinophils # 0.02 L (0.04-0.35) X 10*3/uL Assessment and Plan (1) Status post total right knee replacement Narrative/Plan: She will continue with routine postop orthopedic protocol including pain man agement, wound care, PT, DVT prophylaxis and medical management. Will adjust pain meds today to optimize pain control. Expect that she will transfer to home tomorrow Current Visit: Yes Status: Acute Priority: Medium Code(s): Z96.651 - PRESENCE OF RIGHT ARTIFICIAL KNEE JOINT SNOMED Code(s): 5254455061624 Time with Patient: Less than 30
[2021-02-11] MEDS: LACTATED RINGERS 1,000 ML IV SCH (05:08)
[2021-02-11] MEDS: MULTIVITAMINS, THERA 1 EACH TAB PO SCH ×2 (08:17→08:21)
[2021-02-11] MEDS: ASPIRIN 81 MG PO SCH (08:17)
[2021-02-11] MEDS: APIXABAN 5 MG TAB PO SCH (08:17)
[2021-02-11] MEDS: CALCIUM CARB-VIT D 500 MG-5 MCG TAB PO SCH (08:17)
[2021-02-11] MEDS: ATORVASTATIN 10 MG TAB PO SCH (08:17)
[2021-02-11] MEDS: HYDROcodone/APAP 10-325MG 1 EACH TAB PO PRN (08:17)
[2021-02-11] MEDS: cycloSPORINE 0.05% OPHTH 0.4 ML DROPERETTE BOTH EYES SCH (08:17)
[2021-02-11 08:28] VITALS: BP 133/73; PULSE 83; TEMP 98.4
--- NOTE | 2021-02-11 10:14 | P.PN ---
Subjective Progress Note Date: 02/11/21 Progress Note Date: 02/11/21 HISTORY OF PRESENT ILLNESS: This is a 75-year-old female one of my patient with a previous medical history significant for hyperlipidemia, history of paroxysmal atrial flutter ablation, supraventricular tachycardia status post ablation, history of spondylosis of the lumbar spine, osteoarthritis underwent right total knee arthroplasty that was done successfully by Dr. Velazco and we were asked to see the patient for medical management patient is laying down in bed in no apparent distress, she denies any chest pain or shortness breath, she does have the On-Q pump in place, she does complain of some swelling in the right lower extremity without any pain in the calf area, she has no nausea or vomiting she seems to be tolerating her treatment very well. 02/10: Pain to the right knee is fairly well controlled. She has incentive spirometry encouraged to use every hour. Anticipate possible discharge home today. Medication reconciliation has been reviewed, she is asking to see if hospital for one more day due to her pain in the right knee, however she will be ready to be discharged home in the morning 02/11: Patient's distress, she has no chest pain, shortness breath, she has no abdominal pain, nausea vomiting or diarrhea, she did have a bowel movement, she seems to be tolerating her treatment very well., she was restarted back on her Eliquis yesterday 5 mg orally twice every day, patient is planned to be discharged home today and follow-up with me as an outpatient next week. REVIEW OF SYSTEMS: Constitutional: No documented fever, no chills, no night sweats. No weight change. No weakness, fatigue or lethargy. No daytime sleepiness. HEENT: No headache. No blurred vision or double vision, no loss of vision. No loss of Hearing, no ringing in the ears, no dizziness. No nasal drainage or congestion. No epistaxis. No sore throat. Lungs: No shortness of breath, no cough, no sputum production. No wheezing. Re ports dyspnea with activity. Cardiovascular: No chest pain, no lower extremity edema. No palpitations. No paroxysmal nocturnal dyspnea. No orthopnea. No lightheadedness or dizziness. No syncopal episodes. Abdominal: Reports no abdominal pain. No nausea, vomiting. No diarrhea. No constipation. No bloody or tarry stools reports loss of appetite. Genitourinary: No dysuria, increased frequency, urgency. No urinary retention. Musculoskeletal: No myalgias. No muscle weakness, no gait dysfunction, no frequent falls Integumentary: incision appears clean with no drainage, no lesions. No rash or pruritus. No unusual bruising. No change in hair or nails. Neurologic: No aphasia. No facial droop. No change in mentation. No head injury. No headache. No paralysis. No paresthesia. Psychiatric: No depression. No anxiety. No mood swings. Endocrine: No abnormal blood sugars. No weight change. PHYSICAL EXAMINATION: General: 75-year-old female laying down in bed in no apparent distress HEENT: Head is atraumatic, normocephalic, pupils were equal round reactive to light and recommendation, extraocular muscle movement were intact, sclera nonicteric, conjunctivae were pale, mucous membranes of the mouth are somewhat dry. Neck: Supple, no JVP, normal carotid upstroke bilaterally, no lymphadenopathy. Chest: Decreased breath sounds at the bases, few rhonchi, no expiratory wheezes, no chest wall tenderness, no intercostal retractions. Heart: First heart sound is normal, second heart sounds normal, there is no gallop or murmur. Abdomen: Soft, nontender, nondistended, positive bowel sounds. Extremities: There is +2 edema in the right lower extremity no calf tenderness DP +2 bilaterally,incision of the right knee appears clean with no erythema or drainage. Neurologic examination: Patient is awake alert and oriented X3, cranial nerves II-12 appear grossly intact, muscle power were 5 out of 5 in upper extremities and 5 out of 5 in bilateral lower extremities, deep tendon reflexes normal bilaterally. ASSESSMENT AND PLAN: 1. Post operative day #2 status post right total knee arthroplasty. Patient was instructed to use the incentive spirometer to reduce the incidence of atelectasis and hospital acquired pneumonia, continue current pain management as outlined by orthopedic surgery, continue with Eliquis, continue with physical therapy evaluation. 2. Paroxysmal atrial fibrillation currently in sinus rhythm. Continue Eliquis 5 mg orally twice every day. 3. Mixed hyperlipidemia. Continue Crestor 5 mg orally once every day. 4. ALLERGIC rhinitis. Continue patient on fluticasone nasal spray 1 puff in each nostril twice every day, Zyrtec 10 mg orally once every day. 5. History of osteopenia. Hold patient Evista for now. 6. Supraventricular tachycardia status post ablation. Stable. 7. GERD. Continue patient on Pepcid or Protonix 40 mg once every day. 8. Acute blood loss anemia. she will be startd on iron 325 mg orally daily. 9. DVT prophylaxis. Continue with Eliquis 5 mg orally twice every day to start tomorrow night. 10. GI prophylaxis. Continue patient on Protonix 40 mg once every day. 11. Medically stable for discharge and follow up with me in 2 weeks DISCHARGE PLAN: Home with [facility] Objective - Vital Signs Vital signs: Vital Signs Temp 98.4 F 02/11/21 08:00 Pulse 83 02/11/21 08:00 Resp 16 02/11/21 08:00 BP 133/73 02/11/21 08:00 Pulse Ox 94 L 02/11/21 08:00 Intake & Output 02/10/21 02/11/21 02/11/21 18:59 06:59 18:59 Intake Total 300 236 Balance 300 236 Intake: Oral 300 236 Other: Voiding Method Toilet # Voids 8 - Labs CBC & Chem 7: 02/10/21 06:29
--- NOTE | 2021-02-11 11:54 | P.DS ---
Providers Expected date of discharge: 02/11/21 Attending physician: Jeancarlos Velazco Consults: 02/09/21 10:07 Consult Physician Routine Consulting Provider: June Iverson Consult Reason/Comments: post op medical management Do you want consulting provider notified?: Yes Primary care physician: June Iverson - Discharge Diagnosis(es) (1) Osteoarthritis of right knee Current Visit: Yes Status: Acute (2) Status post total right knee replacement Current Visit: Yes Status: Acute Priority: Medium Hospital Course: This is a 75-year-old female who was last seen with complaint of continued right knee pain. The patient has a known history of degenerative arthritis of the right knee and presents to discuss surgical options. After discussion and consideration the patient elects to proceed with total right knee arthroplasty. The patient is seen preoperatively by her primary care physician and cleared for surgery. The patient is admitted to [facility] for total right knee arthroplasty. The procedure is performed without complication or sequelae. Patient is doing well postoperatively. Vital signs are stable at discharge. Labs are stable at discharge. the patient is ambulating well with walker with minimal assistance. The patient is discharged to home on postop day #2 pending medical clearance. Please see orders and refer to the med rec for accurate list of medications. Patient Condition at Discharge: Good Plan - Discharge Summary Discharge Rx Participant: No New Discharge Prescriptions: New Sennosides-Docusate Sodium [Senokot-S] 2 each PO HS tab Docusate [Colace] 100 mg PO BID #60 cap HYDROcodone/APAP 10-325MG [Bastian 10-325] 1 tab PO Q4HR PRN #42 tab PRN Reason: Pain Continue Fluticasone Propionate [Flonase] 1 spray EA NOSTRIL BID PRN PRN Reason: Sinus Symptoms Raloxifene [Evista] 60 mg PO HS Aspirin 81 mg PO DAILY cycloSPORINE 0.05% OPHTH SOLN [Restasis] 1 drop BOTH EYES BID Cetirizine HCl [Zyrtec] 10 mg PO HS Apixaban [Eliquis] 5 mg PO BID Rosuvastatin Calcium 5 mg PO DAILY Magnesium 250 mg PO W/SUPPER Calcium 500 With Vit D 400 1 tab PO DAILY Multivit-Min/FA/Lycopen/Lutein [Centrum Silver Tablet] 1 each PO DAILY Acetaminophen Tab [Tylenol] 500 mg PO Q6H PRN PRN Reason: Pain Discharge Medication List Fluticasone Propionate [Flonase] 1 spray EA NOSTRIL BID PRN 10/20/13 [History] Raloxifene [Evista] 60 mg PO HS 10/12/14 [History] Aspirin 81 mg PO DAILY 01/11/15 [History] cycloSPORINE 0.05% OPHTH SOLN [Restasis] 1 drop BOTH EYES BID 10/03/18 [History] Acetaminophen Tab [Tylenol] 500 mg PO Q6H PRN 01/27/21 [History] Apixaban [Eliquis] 5 mg PO BID 01/27/21 [History] Calcium 500 With Vit D 400 1 tab PO DAILY 01/27/21 [History] Cetirizine HCl [Zyrtec] 10 mg PO HS 01/27/21 [History] Magnesium 250 mg PO W/SUPPER 01/27/21 [History] Multivit-Min/FA/Lycopen/Lutein [Centrum Silver Tablet] 1 each PO DAILY 01/27/21 [History] Rosuvastatin Calcium 5 mg PO DAILY 01/27/21 [History] Docusate [Colace] 100 mg PO BID #60 cap 02/10/21 [Rx] HYDROcodone/APAP 10-325MG [Bastian 10-325] 1 tab PO Q4HR PRN #42 tab 02/10/21 [Rx] Sennosides-Docusate Sodium [Senokot-S] 2 each PO HS tab 02/10/21 [Rx] Follow up Appointment(s)/Referral(s): June Iverson MD [Primary Care Provider] - 2 Weeks [facility], [NON-STAFF] - ([facility] will call you to set up the time for your first home physical therapy visit. Please contact them if you have questions regarding home care. ) Jeancarlos Velazco MD [STAFF PHYSICIAN] - 10 Days Activity/Diet/Wound Care/Special Instructions: Take meds as directed F/U in office Weightbear as tolerated May shower in 3 days if no bleeding or drainage Discharge Disposition: HOME WITH HOME HEALTH SERVICES
== END 2021-02-11 13:45 | disposition home health service (06) ==
LOC: OR 07:38 → 4SSUR 12:01 → OR 02-11 13:45
PROVIDERS: ATTEND Orthopaedic Surgery Sports Medicine
DX: M17.11 Unilateral primary osteoarthritis, right knee (principal); I48.0 Paroxysmal atrial fibrillation; E78.5 Hyperlipidemia, unspecified; Z87.891 Personal history of nicotine dependence; M87.851 Other osteonecrosis, right femur; Z79.01 Long term (current) use of anticoagulants; Z79.899 Other long term (current) drug therapy; Z79.82 Long term (current) use of aspirin; I48.92 Unspecified atrial flutter
CPT/HCPCS: 97116; 97161; 64999; 64448; 76942; 85025; 88300; 87635; 73560; 27447; C1776; C1713; J2250; J3370; J1100; J2405; J0690; J3010; J2795 ×2; J1170

== ENCOUNTER → 2021-10-23 | Outpatient (CLI) | payer MEDICARE ==
--- NOTE | 2021-10-23 13:04 | XR ---
EXAMINATION TYPE: XR chest 2V DATE OF EXAM: 10/23/2021 COMPARISON: 02/13/2011 HISTORY: 75-year-old female J21.9, acute bronchitis, persistent cough for 2 weeks. TECHNIQUE: Frontal and lateral views FINDINGS: Heart normal size. Dextroconvex curvature thoracic spine. Aorta and coronary vasculature within inderjit l limits. There is some mild patchy density at the medial right base. Additional mild patchy density posterior base on the lateral view. No pleural effusion. IMPRESSION: Some mild patchy density medial right base on the frontal view and posterior base on the lateral view . Areas of atelectasis versus infiltrate are suggested.
== END | disposition home or self-care (01) ==
LOC: RADXRMAIN 12:22
PROVIDERS: ATTEND Internal Medicine
DX: J98.4 Other disorders of lung (principal)
CPT/HCPCS: 71046

== ENCOUNTER → 2021-11-23 | Outpatient (CLI) | payer MEDICARE ==
--- NOTE | 2021-11-23 14:48 | XR ---
EXAMINATION TYPE: XR chest 2V DATE OF EXAM: 11/23/2021 COMPARISON: Chest x-ray 10/23/2021 HISTORY: J 18.9 TECHNIQUE: Frontal and lateral views of the chest are obtained. FINDINGS: There is no focal air space opacity, pleural effusion, or pneumothorax seen. There is imp roved aeration as compared to prior exam. The cardiac silhouette size is within normal limits. Aorta is dense. Right hemidiaphragm remains elevated. The osseous structures are intact, there is a spinal curvature and associated thoracic spondylosis. IMPRESSION: No acute cardiopulmonary process.
== END | disposition home or self-care (01) ==
LOC: RADXRMAIN 11:52
PROVIDERS: ATTEND Internal Medicine
DX: J18.9 Pneumonia, unspecified organism (principal)
CPT/HCPCS: 71046

== ENCOUNTER → 2022-01-29 | Outpatient (CLI) | payer MEDICARE ==
--- NOTE | 2022-01-29 10:51 | MM ---
Reason for Exam: Screening (asymptomatic). Last screening mammogram was performed 12 month(s) ago. Patient History: Menarche at age 9. First Full-Term at age 25. Postmenopausal. Patient used Hormonal Contraceptives for 12 years. Benign Cyst Aspiration. Risk Values: Kaitlin 5 year model risk: 2.1%. NCI Lifetime model risk: 3.8%. Prior Study Comparison: 01/16/2019 Bilateral Screening Mammogram, [facility]. 01/22/2020 Bilateral Screening Mammogram, [facility]. 01/25/2021 Bilateral Screening Mammogram, [facility]. Tissue Density: The breast tissue is heterogeneously dense. This may lower the sensitivity of mammography. Findings: Analyzed By CAD. There is no suspicious group of microcalcifications or new suspicious mass in either breast. Benign-appearing calcifications within both breasts. No significant change from prior examination. Overall Assessment: Benign, BI-RAD 2 Management: Screening Mammogram of both breasts in 1 year. A clinical breast exam by your physician is recommended on an annual basis and results should be correlated with mammographic findings. Electronically signed and approved by: Osvaldo Carr D.O.
--- NOTE | 2022-01-29 11:27 | BD ---
EXAMINATION TYPE: Axial Bone Density DATE OF EXAM: 01/29/2022 COMPARISON: NONE CLINICAL HISTORY: 76 years year old Female. ICD-10 CODE: M85.851 OSTEOPENIA Height: 4 FT 11 1/2 IN Weight: 146 FRAX RISK QUESTIONS: Alcohol (3 or more units per day): NO Family History (Parent hip fracture): YES Glucocorticoids (More than 3mos): NO (Ex: prednisone, prednisolone, methylprednisolone, dexamethasone, and hydrocortisone). History of Fracture in Adulthood: NO Secondary Osteoporosis: 1. Type 1 Diabetes: NO 2. Hyperthyroidism: NO 3. Menopause before 45: YES 4. Malnutrition: NO 5. Chronic liver disease: NO Rheumatoid Arthritis: NO Current Tobacco Use: NO RISK FACTORS HISTORY OF: Surgery to Spine/Hip(right/left)/Wrist (right/left): RT HIP REPLACEMENT When: 2014 Family History of Osteoporosis: NO Active: YES Diet low in dairy products/other sources of calcium: NO Postmenopausal woman: YES Take estrogen and/or progesterone medications: NONE Lost more than 2 inches in height since high school: NO Frequent falls: NO Poor Health: GOOD Hyperparathyroidism: NO Adrenal Insufficiency: NO MEDICATIONS: Additional Medications: SINGULAIR ,ROSUVASTATIN, ELOQUIS,RALOXIFEN Additional History: 2019 STUDY UNAVAIABLE FOR COMPARISON EXAM MEASUREMENTS: Bone mineral densitometry was performed using the [employer] System. Bone mineral density as measured about the Lumbar spine is: ----- L1-L4(G/cm2): 1.186 T Score Values are as follows: ----- L1: -0.9 ----- L2: -1.0 ----- L3: 0.7 ----- L4: 0.8 ----- L1-L4: 0.1 Bone mineral density has: INCREASED 2.0 % since study of: 2017 Bone mineral density about the L hip (g/cm2): 0.746 T Score values are as follows: -----L Neck: -2.1 -----L Total: -1.1 Bone mineral density has: DECREASED -2.4 % since study of: 2017 FRAX%s: The graph provided illustrates a 15.1 % chance for a major osteoporotic fx and a 4.4 % chance for the hips probability for fx in 10 years time. IMPRESSION: Osteopenia (T Score between -2.5 and -1). There is slightly increased risk of fracture and the patient may be considered for treatment. Re-Screen 2-5 years. NOTE: T-SCORE=SD OF THE YOUNG ADULT MEAN.
== END | disposition home or self-care (01) ==
LOC: RADMAMWWP 10:15
PROVIDERS: ATTEND Internal Medicine
DX: Z12.31 Encounter for screening mammogram for malignant neoplasm of breast (principal); M85.89 Other specified disorders of bone density and structure, multiple sites
CPT/HCPCS: 77063; 77067; 77080

== ENCOUNTER → 2023-01-31 | Outpatient (CLI) | payer MEDICARE ==
--- NOTE | 2023-02-01 22:53 | MM ---
Reason for Exam: Screening (asymptomatic). Last screening mammogram was performed 12 month(s) ago. Patient History: Menarche at age 9. First Full-Term at age 25. Postmenopausal. Other cancer. Patient used Hormonal Contraceptives for 12 years. Benign Cyst Aspiration. Risk Values: Kaitlin 5 year model risk: 2.1%. NCI Lifetime model risk: 3.4%. Prior Study Comparison: 01/22/2020 Bilateral Screening Mammogram, [facility]. 01/25/2021 Bilateral Screening Mammogram, [facility]. 01/29/2022 Bilateral MG 3D screening mammo w/cad, [facility]. Tissue Density: There are scattered fibroglandular densities. Findings: Analyzed By CAD. Unchanged axillary tail lymph node on the left. There is no suspicious group of microcalcifications or new suspicious mass in either breast. Overall Assessment: Benign, BI-RAD 2 Management: Screening Mammogram of both breasts in 1 year. . Patient should continue monthly self-breast exams. A clinical breast exam by your physician is recommended on an annual basis. This exam should not preclude additional follow-up of suspicious palpable abnormalities. Note on Kaitlin scores and lifetime risk: 1. A Kaitlin score greater than 3% is considered moderate risk. If this is the case, consider specialist referral to assess eligibility for a risk reducing agent. 2. If overall lifetime risk for the development of breast cancer is 20% or higher, the patient may qualify for future screening with alternating mammogram and breast MRI. Electronically signed and approved by: Zeke Arthur M.D. Radiologist
== END | disposition home or self-care (01) ==
LOC: RADMAMWWP 12:23
PROVIDERS: ATTEND Internal Medicine
DX: Z12.31 Encounter for screening mammogram for malignant neoplasm of breast (principal); Z78.0 Asymptomatic menopausal state
CPT/HCPCS: 77063; 77067

== ENCOUNTER → 2024-02-03 | Outpatient (CLI) | payer MEDICARE ==
--- NOTE | 2024-02-03 16:30 | MM ---
Reason for Exam: Screening (asymptomatic). Last screening mammogram was performed 12 month(s) ago. Patient History: Menarche at age 9. First Full-Term at age 25. Postmenopausal. Other cancer, age 58. Patient used Hormonal Contraceptives for 12 years. Benign Cyst Aspiration. Risk Values: Kaitlin 5 year model risk: 2.0%. NCI Lifetime model risk: 3.1%. Prior Study Comparison: 01/25/2021 Bilateral Screening Mammogram, [facility]. 01/29/2022 Bilateral MG 3D screening mammo w/cad, [facility]. 01/31/2023 Bilateral MG 3D screening mammo w/cad, [facility]. Tissue Density: There are scattered areas of fibroglandular density. Findings: Analyzed By CAD. The pattern is symmetrical. No significant interval change is evident. Nodules in the upper outer left breast. No significant interval change is evident No suspicious groups of microcalcifications, spiculated or lobular masses, architectural distortion or other secondary signs of malignancy are mammographically apparent. Overall Assessment: Benign, BI-RAD 2 Management: Screening Mammogram of both breasts in 1 year. A negative mammogram report should not preclude additional follow up of suspicious palpable abnormalities. Patient should continue monthly self breast exam. A clinical breast exam by your physician is recommended on an annual basis and results should be correlated with mammographic findings. Note on Kaitlin scores and lifetime risk: 1. A Kaitlin score greater than 3% is considered moderate risk. If this is the case, consider specialist referral to assess eligibility for a risk reducing agent. 2. If overall lifetime risk for the development of breast cancer is 20% or higher, the patient may qualify for future screening with alternating mammogram and breast MRI. [facility], , 02/03/2024 4:27 PM. Electronically signed and approved by: Miki Shen D.O. Radiologis
--- NOTE | 2024-02-04 23:27 | BD ---
EXAMINATION TYPE: Axial Bone Density DATE OF EXAM: 02/03/2024 CLINICAL HISTORY: 78 years old Female. ICD-10 CODE: M85.851 OSTREOPENIA Height: 4 ft 11 3/4 in Weight: 146 FRAX RISK QUESTIONS: Alcohol (3 or more units per day): no Family History (Parent hip fracture): yes Glucocorticoids (More than 3mos): no (Ex: prednisone, prednisolone, methylprednisolone, dexamethasone, and hydrocortisone). History of Fracture in Adulthood: no Secondary Osteoporosis: 1. Type 1 Diabetes: no 2. Hyperthyroidism: no 3. Menopause before 45: no 4. Malnutrition: no 5. Chronic liver disease: no Rheumatoid Arthritis: no Current Tobacco Use: no RISK FACTORS HISTORY OF: Surgery to Spine/Hip(right/left)/Wrist (right/left): rt hip replacement When: 15 years ago MEDICATIONS: Thyroid Medications: none Osteoporosis Medications: yes Which medication: evista How Long: sev years EXAM MEASUREMENTS: Bone mineral densitometry was performed using the [employer] System. Bone mineral density as measured about the Lumbar spine is: ----- L1-L4(G/cm2): 1.184 T Score Values are as follows: ----- L1: -0.8 ----- L2: -0.9 ----- L3: 0.8 ----- L4: 0.5 ----- L1-L4: 0.0 Z Score Values are as follows: ----- L1: 1.0 ----- L2: 0.9 ----- L3: 2.5 ----- L4: 2.3 ----- L1-L4: 1.8 Bone mineral density has: decreased -0.2 % since study of: 2021 Bone mineral density about the L hip (g/cm2): 0.698 T Score values are as follows: -----L Neck: -2.4 -----L Total: -1.2 Z Score values are as follows: -----L Neck: -0.3 -----L Total: 0.8 Bone mineral density has: decreased -1.5 % since study of: 2021 FRAX%s: The graph provided illustrates a 24.0 % chance for a major osteoporotic fx and a 8.9 % chance for the hips probability for fx in 10 years time. IMPRESSION: Osteopenia (T Score between -2.5 and -1). There is slightly increased risk of fracture and the patient may be considered for treatment. Re-Screen 2-5 years. NOTE: T-SCORE=SD OF THE YOUNG ADULT MEAN. [facility], , 02/04/2024 11:25 PM
== END | disposition home or self-care (01) ==
LOC: RADMAMWWP 08:31
PROVIDERS: ATTEND Internal Medicine
DX: Z12.31 Encounter for screening mammogram for malignant neoplasm of breast (principal); M85.851 Other specified disorders of bone density and structure, right thigh; Z78.0 Asymptomatic menopausal state; R92.323 Mammographic fibroglandular density, bilateral breasts; M81.8 Other osteoporosis without current pathological fracture
CPT/HCPCS: 77063; 77067; 77080

== ENCOUNTER → 2024-07-14 | Outpatient (CLI) | payer MEDICARE ==
--- NOTE | 2024-07-15 06:28 | XR ---
EXAMINATION TYPE: XR chest 2V DATE OF EXAM: 07/14/2024 5:09 PM COMPARISON: Chest x-ray November 23, 2021 CLINICAL INDICATION: Female, 78 years old with history of J20.9, cough since June 29 , concern fo r bronchitis or pneumonia TECHNIQUE: Frontal and lateral views of the chest are obtained. FINDINGS: There is new posterior retrocardiac opacity seen best on lateral view. The cardiac silhou ette size is stable and upper limits of normal. The osseous structures are intact. IMPRESSION: New posterior left lower lobe acute infiltrate and/or atelectasis. [facility], , 07/15/2024 6:26 AM
== END | disposition home or self-care (01) ==
LOC: RADXRMAIN 16:54
PROVIDERS: ATTEND Internal Medicine
DX: J20.9 Acute bronchitis, unspecified (principal)
CPT/HCPCS: 71046

== ENCOUNTER → 2024-07-28 | Outpatient (CLI) | payer MEDICARE ==
--- NOTE | 2024-07-28 11:01 | XR ---
EXAMINATION TYPE: XR chest 2V DATE OF EXAM: 07/28/2024 CLINICAL INDICATION: Female, 78 years old with history of J20.9 ACUTE BRONCHITIS, UNSPECIFIED, TECHNIQUE: Frontal and lateral views of the chest are obtained. COMPARISON: Chest x-ray July 14, 2024 FINDINGS: There is no focal air space opacity, pleural effusion, or pneumothorax seen. The cardiac silhouette size is stable and upper limits of normal. Dextroconvex scoliosis is again seen. IMPRESSION: No acute pulmonary process currently. [facility], , 07/28/2024 10:58 AM
== END | disposition home or self-care (01) ==
LOC: RADXRMAIN 10:39
PROVIDERS: ATTEND Internal Medicine
DX: J20.9 Acute bronchitis, unspecified (principal)
CPT/HCPCS: 71046